=== PATIENT | male | born 1990 | race Two or more races ===

== ENCOUNTER 2024-12-26 19:14 | Emergency (ER) | payer MEDICAID ==
[~2024-12-26] VITALS: Ht 172.7 cm; Wt 81.6 kg
[2024-12-26 19:34] VITALS: O2SAT 98
[2024-12-26] MEDS ORDERED: KETOROLAC TROMETHAMINE 30 MG INJ ONE (20:14)
[2024-12-26] MEDS: KETOROLAC TROMETHAMINE 30 MG INJ IM ONE (20:16)
[2024-12-26] MEDS ORDERED: CYCL10TA9 PO (20:21)
[2024-12-26] MEDS ORDERED: HYDR-3980 PO (20:21)
== END 2024-12-26 20:30 | disposition home or self-care (01) ==
LOC: ER 19:54
DX: M54.50 Low back pain, unspecified (principal)
CPT/HCPCS: 72110; A4606; A4663; J1885

== ENCOUNTER 2025-02-04 13:25 | Emergency (ER) | payer MEDICAID ==
[~2025-02-04] VITALS: Ht 172.7 cm; Wt 81.6 kg
[~2025-02-04 13:25] MED LIST: CYCL10TA9 PO; HYDR-3980 PO
[2025-02-04 13:26] VITALS: BP 125/76
[2025-02-04] MEDS ORDERED: METH-807 PO (14:13)
[2025-02-04] MEDS ORDERED: HYDR-3980 PO (14:13)
[2025-02-04 14:19] VITALS: BP 129/80; O2SAT 99
== END 2025-02-04 14:19 | disposition home or self-care (01) ==
LOC: ER 13:25
DX: S39.012A Strain of muscle, fascia and tendon of lower back, initial encounter (principal); X58.XXXA Exposure to other specified factors, initial encounter; Y93.89 Activity, other specified; Y92.89 Other specified places as the place of occurrence of the external cause; Y99.8 Other external cause status
CPT/HCPCS: A4606; A4663